=== PATIENT | male | born 1950 | race Caucasian/White ===

== ENCOUNTER 2023-09-08 17:27 | Inpatient (IN) | payer BC, MEDICARE ==
[2023-09-08] MEDS ORDERED: Sodium Chloride 0.9% 2.5 ML Syringe FLUSH PRN (17:29)
[2023-09-08] MEDS ORDERED: Sodium Chloride 0.9% 10 ML Syringe FLUSH PRN (17:29)
[2023-09-08 17:39] LABS: BASOPHILS ABSOLUTE AUTO 0.04 K/uL (0.00-0.20); BASOPHILS PERCENT AUTO 0.3 % (0.0-1.0); HEMATOCRIT 40.7 % (42.0-52.0); HEMOGLOBIN 14.6 g/dL (14.0-18.0); IMMATURE GRAN ABSOLUTE AUTO 0.08 K/uL (0.00-0.05); IMMATURE GRAN PERCENT AUTO 0.5 % (0.0-0.4); LYMPHOCYTES ABSOLUTE AUTO 0.31 K/uL (1.00-4.80); MEAN CORPUSCULAR HEMOGLOBIN 31.9 pg (28.0-32.0); MEAN CORPUSCULAR HGB CONC 35.9 g/dL (32.0-36.0); MEAN CORPUSCULAR VOLUME 89.1 fL (83.0-99.0); MONOCYTES ABSOLUTE AUTO 1.08 K/uL (0.00-0.80); MONOCYTES PERCENT AUTO 6.9 % (0.0-8.0); NEUTROPHILS ABSOLUTE AUTO 14.05 K/uL (1.80-7.70); NEUTROPHILS PERCENT AUTO 90.3 % (41.0-71.0); PLATELET COUNT,PLT 143 K/uL (150-400); RED BLOOD CELL COUNT 4.57 M/uL (4.52-5.90); WHITE BLOOD CELL COUNT,WBC 15.56 K/uL (3.9-11.3)
[2023-09-08 18:05] LABS: INR 2.39 (0.86-1.11); PTT,PARTIAL THROMBOPLSTIN TIME 40.8 SEC (23.9-30.7)
[2023-09-08 18:20] LABS: A/G RATIO 0.8 (0.9-1.6); ALANINE AMINOTRANSFERASE,ALT 34 IU/L (14-63); ALBUMIN 3.6 g/dL (3.4-5.0); ALKALINE PHOSPHATASE 98 U/L (46-116); ASPARTATE AMNIOTRANSFERASE,AST 36 IU/L (15-37); BILIRUBIN TOTAL 1.3 mg/dL (0.2-1.0); BLOOD UREA NITROGEN,BUN 18 mg/dL (7.0-18.0); CALCIUM 8.8 mg/dL (8.5-10.1); CARBON DIOXIDE,CO2 26.8 mmol/L (21.0-32.0); CHLORIDE,CL 93 mmol/L (98-107); CREATINE KINASE,CK 673 U/L (26-308); CREATININE 1.5 mg/dL (0.8-1.3); EST CRCL DRUG DOSING (CG) 49.58 mL/min; GLUCOSE RANDOM 327 mg/dL (74-106); LIPASE 14 U/L (16-77); POTASSIUM,K 3.7 mmol/L (3.5-5.1); SODIUM,NA 130 mmol/L (136-148); TSH ULTRASENSITIVE 0.62 uIU/mL (0.36-3.74)
[2023-09-08 18:27] LABS: ESTIMATED GFR 49 mL/min (>60); ETHANOL BLOOD MEDICAL < 3.0 mg/dL
[2023-09-08] MEDS: niCARdipine/Normal Saline 20 MG/200 ML BAG IV SCH (19:54)
[2023-09-08 20:01] LABS: BILIRUBIN,URINE NEGATIVE (NEGATIVE); GLUCOSE,URINE >=1000 mg/dL (NEGATIVE); KETONES,URINE >=80 mg/dL (NEGATIVE); LEUKOCYTE ESTERASE,URINE NEGATIVE (NEGATIVE); NITRITE,URINE NEGATIVE (NEGATIVE); OCCULT BLOOD,URINE MODERATE (NEGATIVE); PH,URINE 5.5 (5.0-8.0); PROTEIN,URINE 100 mg/dL (NEGATIVE); UROBILINOGEN,URINE 0.2 EU/dL (<2.0)
[2023-09-08 20:13] LABS: AMORPHOUS SEDIMENT,URINE FEW (NEGATIVE); APPEARANCE,URINE SLT CLOUDY; BACTERIA,URINE FEW (NEGATIVE); COLOR,URINE DARK YELLOW; EPITHELIAL CELLS,URINE RARE (NONE-FEW); RBC,URINE 0-3 (0-2/HPF); WBC,URINE 0-2 (0-5/HPF)
[2023-09-08 20:14] LABS: MUCUS,URINE OCCASIONAL (NONE-MOD)
[2023-09-08] MEDS: Sodium Chloride 0.9% 1,000 ML IV ONE ×2 (20:25→20:43)
[2023-09-08] MEDS ORDERED: Insulin Aspart 100 Units/ML 3 ML Pen SUBCUT SCH (21:08)
[2023-09-08] MEDS ORDERED: Sodium Chloride 0.9% 1,000 ML IV ONE (21:08)
[2023-09-08] MEDS ORDERED: 50% Dextrose in Water 50 ML Syringe IVPUSH PRN (21:08)
[2023-09-08] MEDS ORDERED: Glucagon,Human Recombinant 1 MG Vial IM PRN (21:08)
[2023-09-08] MEDS ORDERED: Ondansetron 4 MG/2 ML SDV IVPUSH PRN (22:33)
[2023-09-08] MEDS ORDERED: Naloxone 0.4 MG/ML SDV IVPUSH PRN (22:33)
[2023-09-08] MEDS ORDERED: Morphine 2 MG/ML SYRINGE IVPUSH PRN (22:33)
[2023-09-08] MEDS ORDERED: Albuterol/Ipratropium 3.0-0.5 MG/3 ML Neb Soln NEB PRN (22:33)
[2023-09-08] MEDS: Pantoprazole 40 MG in Sodium Chloride 0.9% 10 ML IVPUSH SCH (23:30)
[2023-09-09] MEDS: niCARdipine/Normal Saline 20 MG/200 ML BAG IV SCH (01:50)
[2023-09-09] MEDS ORDERED: Glucagon,Human Recombinant 1 MG Vial IM PRN ×2 (03:47→17:00)
[2023-09-09] MEDS ORDERED: 50% Dextrose in Water 50 ML Syringe IVPUSH PRN ×2 (03:47→17:00)
[2023-09-09] MEDS ORDERED: Insulin Aspart 100 Units/ML 3 ML Pen SUBCUT ONE (03:49)
[2023-09-09 06:52] LABS: BASOPHILS ABSOLUTE AUTO 0.03 K/uL (0.00-0.20); BASOPHILS PERCENT AUTO 0.2 % (0.0-1.0); HEMATOCRIT 36.9 % (42.0-52.0); HEMOGLOBIN 13.4 g/dL (14.0-18.0); IMMATURE GRAN ABSOLUTE AUTO 0.09 K/uL (0.00-0.05); IMMATURE GRAN PERCENT AUTO 0.6 % (0.0-0.4); LYMPHOCYTES PERCENT AUTO 2.6 % (24.0-44.0); MEAN CORPUSCULAR HEMOGLOBIN 32.1 pg (28.0-32.0); MEAN CORPUSCULAR HGB CONC 36.3 g/dL (32.0-36.0); MEAN CORPUSCULAR VOLUME 88.3 fL (83.0-99.0); MEAN PLATELET VOLUME 11.4 fL (9.4-12.4); MONOCYTES ABSOLUTE AUTO 1.27 K/uL (0.00-0.80); MONOCYTES PERCENT AUTO 8.3 % (0.0-8.0); NEUTROPHILS ABSOLUTE AUTO 13.44 K/uL (1.80-7.70); NEUTROPHILS PERCENT AUTO 88.3 % (41.0-71.0); PLATELET COUNT,PLT 144 K/uL (150-400); RED BLOOD CELL COUNT 4.18 M/uL (4.52-5.90); WHITE BLOOD CELL COUNT,WBC 15.23 K/uL (3.9-11.3)
[2023-09-09] MEDS ORDERED: niCARdipine/Normal Saline 20 MG in Premix Bag 1 BAG IV SCH (07:00)
[2023-09-09 07:04] LABS: INR 2.41 (0.86-1.11)
[2023-09-09 07:15] LABS: A/G RATIO 0.7 (0.9-1.6); BILIRUBIN TOTAL 0.9 mg/dL (0.2-1.0); CALCIUM 8.4 mg/dL (8.5-10.1); CARBON DIOXIDE,CO2 22.4 mmol/L (21.0-32.0); CREATININE 1.4 mg/dL (0.8-1.3); EST CRCL DRUG DOSING (CG) 53.12 mL/min; MAGNESIUM 1.7 mg/dL (1.8-2.4); PHOSPHORUS 1.9 mg/dL (2.6-4.7); POTASSIUM,K 3.2 mmol/L (3.5-5.1); PROTEIN TOTAL,TP 7.2 g/dL (6.4-8.2)
[2023-09-09] MEDS: Insulin Aspart 100 Units/ML 3 ML Pen SUBCUT SCH ×3 (07:46→16:53)
[2023-09-09] MEDS ORDERED: Potassium Chloride 20 MEQ Tab.ER PO ONE ×2 (08:15→17:50)
[2023-09-09] MEDS ORDERED: Magnesium Sulfate/Water 2 GM in Premix Bag 1 BAG IV ONE (08:15)
[2023-09-09] MEDS ORDERED: Sodium Chloride 0.9% 1,000 ML IV SCH (08:45)
[2023-09-09] MEDS ORDERED: amLODIPine 5 MG Tab PO SCH (09:00)
[2023-09-09] MEDS ORDERED: Lactated Ringers 1,000 ML IV SCH (09:15)
[2023-09-09 09:40] LABS: HEMOGLOBIN A1C 10.3 %
[2023-09-09] MEDS ORDERED: Insulin Glargine,Hum.Rec.Anlog 100 UNIT/ML 3 ML Pen SUBCUT SCH ×2 (10:15→21:00)
[2023-09-09] MEDS: Phosphorus #1 250 MG Tab PO SCH ×2 (11:00→17:11)
[2023-09-09] MEDS ORDERED: Lactated Ringers 1,000 ML IV ONE (12:49)
[2023-09-09 13:43] LABS: CALCIUM 8.7 mg/dL (8.5-10.1); CARBON DIOXIDE,CO2 21.9 mmol/L (21.0-32.0); CREATININE 1.4 mg/dL (0.8-1.3); EST CRCL DRUG DOSING (CG) 53.12 mL/min; POTASSIUM,K 3.4 mmol/L (3.5-5.1)
[2023-09-09] MEDS ORDERED: Gadobenate Dimeglumine 529 MG/ML 20 ML SDV IVPUSH STA (13:45)
[2023-09-09] MEDS ORDERED: Insulin Regular, Human 100 Units/ML 10 ML Vial IVPUSH ONE (17:00)
[2023-09-09] MEDS ORDERED: Warfarin 5 MG Tab PO ONE (17:15)
[2023-09-09 17:56] LABS: CALCIUM 8.3 mg/dL (8.5-10.1); CARBON DIOXIDE,CO2 22.5 mmol/L (21.0-32.0); CREATININE 1.4 mg/dL (0.8-1.3); EST CRCL DRUG DOSING (CG) 53.12 mL/min
[2023-09-09] MEDS: Warfarin Sliding Scale SCH (18:06)
[2023-09-09] MEDS: Sodium Chloride 1 GM Tab PO SCH ×2 (18:07→22:09)
[2023-09-09] MEDS ORDERED: Sotalol 80 MG Tab PO ONE (18:35)
[2023-09-09 18:38] LABS: BASE EXCESS ARTERIAL 0.6 (-2.0-3.0); BICARBONATE,ARTERIAL 23 mEq/L (22-26); PCO2 ARTERIAL 31 mmHG (35-45); PO2 ARTERIAL 56 mmHG (80-105)
[2023-09-09] MEDS: Lisinopril 10 MG Tab PO SCH (19:39)
[2023-09-09] MEDS: Sodium Chloride 0.9% 1,000 ML IV SCH (19:41)
[2023-09-09] MEDS: Acetaminophen 325 MG Tab PO PRN (19:53)
[2023-09-09] MEDS ORDERED: Non-Formulary Medication 1 Each (Insulin Glargine,Hum.Rec.Anlog 100 UNIT/ML Insuln.Pen) SQ SCH (21:00)
[2023-09-09 21:46] LABS: CALCIUM 8.2 mg/dL (8.5-10.1); CARBON DIOXIDE,CO2 24.9 mmol/L (21.0-32.0)
[2023-09-09] MEDS: Pantoprazole 40 MG in Sodium Chloride 0.9% 10 ML IVPUSH SCH (22:09)
[2023-09-09 22:16] LABS: A/G RATIO 0.7 (0.9-1.6); ALBUMIN 2.7 g/dL (3.4-5.0); BILIRUBIN TOTAL 0.7 mg/dL (0.2-1.0); CREATININE 1.4 mg/dL (0.8-1.3); EST CRCL DRUG DOSING (CG) 53.12 mL/min; PROTEIN TOTAL,TP 6.8 g/dL (6.4-8.2)
[2023-09-10] MEDS: Phosphorus #1 250 MG Tab PO SCH ×2 (00:19→06:36)
[2023-09-10] MEDS ORDERED: VANCOmycin 2 GM/400 ML 400 ML IV ONE (02:00)
[2023-09-10] MEDS: Sodium Chloride 1 GM Tab PO SCH ×4 (02:06→18:31)
[2023-09-10] MEDS: Cefepime 2 GM in Sodium Chloride 0.9% 50 ML IV SCH ×3 (02:07→16:49)
[2023-09-10] MEDS: Sodium Chloride 0.9% 1,000 ML IV SCH ×2 (03:45→20:32)
[2023-09-10 06:03] LABS: BASOPHILS ABSOLUTE AUTO 0.03 K/uL (0.00-0.20); BASOPHILS PERCENT AUTO 0.3 % (0.0-1.0); HEMATOCRIT 39.2 % (42.0-52.0); HEMOGLOBIN 14.1 g/dL (14.0-18.0); IMMATURE GRAN ABSOLUTE AUTO 0.08 K/uL (0.00-0.05); IMMATURE GRAN PERCENT AUTO 0.7 % (0.0-0.4); LYMPHOCYTES ABSOLUTE AUTO 0.45 K/uL (1.00-4.80); LYMPHOCYTES PERCENT AUTO 4.1 % (24.0-44.0); MEAN CORPUSCULAR HEMOGLOBIN 31.9 pg (28.0-32.0); MEAN CORPUSCULAR VOLUME 88.7 fL (83.0-99.0); MEAN PLATELET VOLUME 11.4 fL (9.4-12.4); MONOCYTES ABSOLUTE AUTO 0.88 K/uL (0.00-0.80); NEUTROPHILS ABSOLUTE AUTO 9.53 K/uL (1.80-7.70); NEUTROPHILS PERCENT AUTO 86.9 % (41.0-71.0); PLATELET COUNT,PLT 122 K/uL (150-400); RED BLOOD CELL COUNT 4.42 M/uL (4.52-5.90); WHITE BLOOD CELL COUNT,WBC 10.97 K/uL (3.9-11.3)
[2023-09-10 06:46] LABS: INR 1.66 (0.86-1.11)
[2023-09-10 06:54] LABS: A/G RATIO 0.7 (0.9-1.6); ALBUMIN 2.8 g/dL (3.4-5.0); BILIRUBIN TOTAL 0.8 mg/dL (0.2-1.0); CALCIUM 8.4 mg/dL (8.5-10.1); CARBON DIOXIDE,CO2 26.5 mmol/L (21.0-32.0); CREATININE 1.6 mg/dL (0.8-1.3); EST CRCL DRUG DOSING (CG) 46.48 mL/min; POTASSIUM,K 4.2 mmol/L (3.5-5.1); PROTEIN TOTAL,TP 7.1 g/dL (6.4-8.2)
[2023-09-10] MEDS: amLODIPine 5 MG Tab PO SCH (08:20)
[2023-09-10] MEDS: Lisinopril 10 MG Tab PO SCH (08:20)
[2023-09-10] MEDS: Insulin Aspart 100 Units/ML 3 ML Pen SUBCUT SCH ×3 (08:21→16:55)
[2023-09-10] MEDS: Insulin Glargine,Hum.Rec.Anlog 100 UNIT/ML 3 ML Pen SUBCUT SCH (09:55)
[2023-09-10] MEDS: Sotalol 80 MG Tab PO SCH (10:07)
[2023-09-10] MEDS: Acetaminophen 325 MG Tab PO PRN ×2 (11:10→20:29)
[2023-09-10 13:20] LABS: CORONAVIRUS COVID-19 NAA NEGATIVE (NEGATIVE); INFLUENZA A NAA NEGATIVE (NEGATIVE); INFLUENZA B NAA NEGATIVE (NEGATIVE); RESPIRATORY SYNCYTIAL VIR NAA NEGATIVE (NEGATIVE)
[2023-09-10] MEDS ORDERED: Warfarin 5 MG Tab PO SCH (14:00)
[2023-09-10] MEDS: Warfarin Sliding Scale SCH (14:21)
[2023-09-10 14:37] LABS: APPEARANCE,URINE SLT CLOUDY; BILIRUBIN,URINE NEGATIVE (NEGATIVE); COLOR,URINE OTHER; GLUCOSE,URINE NEGATIVE (NEGATIVE); KETONES,URINE NEGATIVE (NEGATIVE); LEUKOCYTE ESTERASE,URINE NEGATIVE (NEGATIVE); NITRITE,URINE NEGATIVE (NEGATIVE); OCCULT BLOOD,URINE LARGE (NEGATIVE); PROTEIN,URINE 100 mg/dL (NEGATIVE)
[2023-09-10 14:51] LABS: BACTERIA,URINE 1+ (NEGATIVE); EPITHELIAL CELLS,URINE RARE (NONE-FEW); WBC,URINE 0-2 (0-5/HPF)
[2023-09-10] MEDS: Pantoprazole 40 MG in Sodium Chloride 0.9% 10 ML IVPUSH SCH (21:44)
[2023-09-11] MEDS: Sodium Chloride 1 GM Tab PO SCH ×4 (00:29→19:31)
[2023-09-11] MEDS: Cefepime 2 GM in Sodium Chloride 0.9% 50 ML IV SCH ×3 (00:29→17:13)
[2023-09-11] MEDS ORDERED: VANCOmycin 1.5 GM/300 ML 1.5 GM in Premix Bag 1 BAG IV SCH (03:00)
[2023-09-11] MEDS: Acetaminophen 325 MG Tab PO PRN ×2 (04:12→23:50)
[2023-09-11] MEDS: Sodium Chloride 0.9% 1,000 ML IV SCH (04:46)
[2023-09-11 05:46] LABS: BASOPHILS ABSOLUTE AUTO 0.03 K/uL (0.00-0.20); BASOPHILS PERCENT AUTO 0.3 % (0.0-1.0); HEMATOCRIT 34.6 % (42.0-52.0); HEMOGLOBIN 12.5 g/dL (14.0-18.0); LYMPHOCYTES ABSOLUTE AUTO 0.38 K/uL (1.00-4.80); LYMPHOCYTES PERCENT AUTO 3.7 % (24.0-44.0); MEAN CORPUSCULAR HEMOGLOBIN 32.1 pg (28.0-32.0); MEAN CORPUSCULAR HGB CONC 36.1 g/dL (32.0-36.0); MEAN CORPUSCULAR VOLUME 88.9 fL (83.0-99.0); MEAN PLATELET VOLUME 11.6 fL (9.4-12.4); MONOCYTES ABSOLUTE AUTO 0.65 K/uL (0.00-0.80); MONOCYTES PERCENT AUTO 6.4 % (0.0-8.0); NEUTROPHILS ABSOLUTE AUTO 9.04 K/uL (1.80-7.70); NEUTROPHILS PERCENT AUTO 88.6 % (41.0-71.0); PLATELET COUNT,PLT 85 K/uL (150-400); RED BLOOD CELL COUNT 3.89 M/uL (4.52-5.90)
[2023-09-11 06:18] LABS: A/G RATIO 0.6 (0.9-1.6); ALBUMIN 2.4 g/dL (3.4-5.0); BILIRUBIN TOTAL 0.8 mg/dL (0.2-1.0); CALCIUM 7.8 mg/dL (8.5-10.1); CREATININE 1.2 mg/dL (0.8-1.3); EST CRCL DRUG DOSING (CG) 61.97 mL/min; POTASSIUM,K 3.2 mmol/L (3.5-5.1); PROTEIN TOTAL,TP 6.4 g/dL (6.4-8.2)
[2023-09-11] MEDS: Insulin Aspart 100 Units/ML 3 ML Pen SUBCUT SCH ×3 (07:03→18:28)
[2023-09-11] MEDS ORDERED: Potassium Chloride 20 MEQ Tab.ER PO ONE (07:39)
[2023-09-11] MEDS ORDERED: Sodium Chloride 0.9% 1,000 ML IV SCH (08:30)
[2023-09-11] MEDS: Sotalol 80 MG Tab PO SCH (08:45)
[2023-09-11] MEDS: Lisinopril 10 MG Tab PO SCH (08:46)
[2023-09-11] MEDS: amLODIPine 5 MG Tab PO SCH (08:47)
[2023-09-11] MEDS: Insulin Glargine,Hum.Rec.Anlog 100 UNIT/ML 3 ML Pen SUBCUT SCH (08:49)
[2023-09-11 12:41] LABS: INR 1.75 (0.86-1.11)
[2023-09-11] MEDS ORDERED: Warfarin 5 MG Tab PO ONE (14:00)
[2023-09-11] MEDS ORDERED: Iopamidol 755 MG/ML 500 ML Multipack Bottle IVPUSH STA (15:01)
[2023-09-11] MEDS: Warfarin Sliding Scale SCH (15:18)
[2023-09-11] MEDS: Pantoprazole 40 MG in Sodium Chloride 0.9% 10 ML IVPUSH SCH (22:47)
[2023-09-12] MEDS: Cefepime 2 GM in Sodium Chloride 0.9% 50 ML IV SCH ×3 (00:55→16:45)
[2023-09-12] MEDS: Sodium Chloride 1 GM Tab PO SCH ×2 (01:18→06:39)
[2023-09-12 05:54] LABS: BASOPHILS ABSOLUTE AUTO 0.04 K/uL (0.00-0.20); BASOPHILS PERCENT AUTO 0.4 % (0.0-1.0); EOSINOPHILS ABSOLUTE AUTO 0.04 K/uL (0.00-0.45); EOSINOPHILS PERCENT AUTO 0.4 % (0.0-6.0); HEMATOCRIT 34.4 % (42.0-52.0); HEMOGLOBIN 12.6 g/dL (14.0-18.0); IMMATURE GRAN ABSOLUTE AUTO 0.08 K/uL (0.00-0.05); IMMATURE GRAN PERCENT AUTO 0.7 % (0.0-0.4); LYMPHOCYTES ABSOLUTE AUTO 0.69 K/uL (1.00-4.80); LYMPHOCYTES PERCENT AUTO 6.3 % (24.0-44.0); MEAN CORPUSCULAR HEMOGLOBIN 32.1 pg (28.0-32.0); MEAN CORPUSCULAR HGB CONC 36.6 g/dL (32.0-36.0); MEAN CORPUSCULAR VOLUME 87.8 fL (83.0-99.0); MEAN PLATELET VOLUME 12.1 fL (9.4-12.4); MONOCYTES ABSOLUTE AUTO 0.85 K/uL (0.00-0.80); MONOCYTES PERCENT AUTO 7.8 % (0.0-8.0); NEUTROPHILS PERCENT AUTO 84.4 % (41.0-71.0); PLATELET COUNT,PLT 83 K/uL (150-400); RED BLOOD CELL COUNT 3.92 M/uL (4.52-5.90)
[2023-09-12 06:07] LABS: INR 2.49 (0.86-1.11)
[2023-09-12 06:22] LABS: A/G RATIO 0.5 (0.9-1.6); ALBUMIN 2.2 g/dL (3.4-5.0); BILIRUBIN TOTAL 0.9 mg/dL (0.2-1.0); CARBON DIOXIDE,CO2 25.3 mmol/L (21.0-32.0); CREATININE 1.3 mg/dL (0.8-1.3); EST CRCL DRUG DOSING (CG) 57.21 mL/min; PROTEIN TOTAL,TP 6.3 g/dL (6.4-8.2)
[2023-09-12] MEDS: Insulin Aspart 100 Units/ML 3 ML Pen SUBCUT SCH ×3 (07:50→19:32)
[2023-09-12] MEDS: amLODIPine 5 MG Tab PO SCH (08:41)
[2023-09-12] MEDS: Lisinopril 10 MG Tab PO SCH (08:42)
[2023-09-12] MEDS: Insulin Glargine,Hum.Rec.Anlog 100 UNIT/ML 3 ML Pen SUBCUT SCH (09:42)
[2023-09-12] MEDS: Potassium Chloride 20 MEQ Tab.ER PO SCH ×3 (09:43→15:10)
[2023-09-12] MEDS ORDERED: Furosemide 20 MG/2 ML VIAL IVPUSH ONE (10:29)
[2023-09-12] MEDS ORDERED: Warfarin 5 MG Tab PO ONE (14:00)
[2023-09-12] MEDS: Warfarin Sliding Scale SCH (14:47)
[2023-09-12] MEDS: Acetaminophen 325 MG Tab PO PRN (17:39)
[2023-09-12] MEDS ORDERED: Iopamidol 755 MG/ML 500 ML Multipack Bottle IVPUSH ONE (19:59)
[2023-09-12] MEDS: Pantoprazole 40 MG in Sodium Chloride 0.9% 10 ML IVPUSH SCH (22:34)
[2023-09-12] MEDS ORDERED: Azithromycin 500 MG in Sodium Chloride 0.9% 250 ML IV SCH (23:45)
[2023-09-13] MEDS: Cefepime 2 GM in Sodium Chloride 0.9% 50 ML IV SCH ×2 (01:28→08:43)
[2023-09-13 01:35] LABS: CORONAVIRUS COVID-19 NAA NEGATIVE (NEGATIVE); INFLUENZA A NAA NEGATIVE (NEGATIVE); INFLUENZA B NAA NEGATIVE (NEGATIVE); RESPIRATORY SYNCYTIAL VIR NAA NEGATIVE (NEGATIVE)
[2023-09-13 06:05] LABS: BASOPHILS ABSOLUTE AUTO 0.04 K/uL (0.00-0.20); BASOPHILS PERCENT AUTO 0.3 % (0.0-1.0); EOSINOPHILS PERCENT AUTO 0.8 % (0.0-6.0); HEMATOCRIT 34.3 % (42.0-52.0); HEMOGLOBIN 12.5 g/dL (14.0-18.0); IMMATURE GRAN ABSOLUTE AUTO 0.19 K/uL (0.00-0.05); IMMATURE GRAN PERCENT AUTO 1.5 % (0.0-0.4); LYMPHOCYTES ABSOLUTE AUTO 0.76 K/uL (1.00-4.80); LYMPHOCYTES PERCENT AUTO 6.1 % (24.0-44.0); MEAN CORPUSCULAR HEMOGLOBIN 31.5 pg (28.0-32.0); MEAN CORPUSCULAR HGB CONC 36.4 g/dL (32.0-36.0); MEAN CORPUSCULAR VOLUME 86.4 fL (83.0-99.0); MEAN PLATELET VOLUME 11.8 fL (9.4-12.4); MONOCYTES ABSOLUTE AUTO 0.96 K/uL (0.00-0.80); MONOCYTES PERCENT AUTO 7.7 % (0.0-8.0); NEUTROPHILS ABSOLUTE AUTO 10.37 K/uL (1.80-7.70); NEUTROPHILS PERCENT AUTO 83.6 % (41.0-71.0); PLATELET COUNT,PLT 103 K/uL (150-400); RED BLOOD CELL COUNT 3.97 M/uL (4.52-5.90); WHITE BLOOD CELL COUNT,WBC 12.42 K/uL (3.9-11.3)
[2023-09-13 06:41] LABS: A/G RATIO 0.5 (0.9-1.6); ALBUMIN 2.1 g/dL (3.4-5.0); BILIRUBIN TOTAL 1.1 mg/dL (0.2-1.0); CALCIUM 7.7 mg/dL (8.5-10.1); CREATININE 1.3 mg/dL (0.8-1.3); EST CRCL DRUG DOSING (CG) 57.21 mL/min; INR 2.79 (0.86-1.11); MAGNESIUM 2.1 mg/dL (1.8-2.4); PHOSPHORUS 2.1 mg/dL (2.6-4.7); POTASSIUM,K 3.1 mmol/L (3.5-5.1); PROTEIN TOTAL,TP 6.3 g/dL (6.4-8.2)
[2023-09-13] MEDS: Insulin Aspart 100 Units/ML 3 ML Pen SUBCUT SCH (07:18)
[2023-09-13] MEDS ORDERED: Potassium Chloride 20 MEQ Tab.ER PO ONE (07:36)
[2023-09-13] MEDS: Lisinopril 10 MG Tab PO SCH (08:42)
[2023-09-13] MEDS: amLODIPine 5 MG Tab PO SCH (08:42)
[2023-09-13] MEDS ORDERED: Insulin Glargine,Hum.Rec.Anlog 100 UNIT/ML 3 ML Pen SUBCUT SCH (09:00)
[2023-09-13] MEDS ORDERED: Phosphorus #1 250 MG Tab PO SCH ×2 (12:00)
[2023-09-14 08:07] LABS: BORDETELLA PARAPERT IS1001 Not Detected (Not Detected)
== END 2023-09-13 11:15 | DRG 557 ==
LOC: MW.ED 17:27 → MW.ICU 19:21 → MW.MS 09-10 13:00
PROVIDERS: ADMIT Family Medicine; ATTEND Family Medicine
DX: M62.82 Rhabdomyolysis (principal); I67.83 Posterior reversible encephalopathy syndrome; I16.1 Hypertensive emergency; R78.81 Bacteremia; I48.92 Unspecified atrial flutter; E87.1 Hypo-osmolality and hyponatremia; N17.9 Acute kidney failure, unspecified; Z20.822 Contact with and (suspected) exposure to COVID-19; I48.91 Unspecified atrial fibrillation; G47.33 Obstructive sleep apnea (adult) (pediatric); E86.0 Dehydration; I10 Essential (primary) hypertension; F41.9 Anxiety disorder, unspecified; R33.9 Retention of urine, unspecified; W19.XXXA Unspecified fall, initial encounter; E11.65 Type 2 diabetes mellitus with hyperglycemia; Z11.52 Encounter for screening for COVID-19; Z79.01 Long term (current) use of anticoagulants; Z79.899 Other long term (current) drug therapy; Z79.4 Long term (current) use of insulin; Z88.0 Allergy status to penicillin
CPT/HCPCS: 0241U; 36415; 36600; 70450; 70553; 71045; 71260; 71275; 72125; 74177; 80048; 80053; 80202; 80307; 81001; 82140; 82550; 82803; 82947; 83036; 83605; 83690; 83735; 84100; 84443; 84484; 85025; 85610; 85730; 86788; 86789; 86850; 86900; 86901; 87040; 87103; 87154; 87389; 87486; 87581; 87633; 93005; 93306; 97161; 97530; 99291; 36410; 87077; 87186; 93010; A9270-GY; A9577; C9113; G0390; J0456; J0692; J1815-GY; J1940; J3370; J3475; J3490; J7030; J7050; J7120; J7620-GY; Q9967